=== PATIENT | male | born 1975 | race Caucasian/White ===

== ENCOUNTER 2018-09-19 14:49 | Observation (INO) ==
--- NOTE | 2018-09-19 14:53 | Emergency Department Note ---
ED Disposition Clinical Impression: Chest pain Qualifiers: Chest pain type: precordial pain Qualified Code(s): R07.2 - Precordial pain Hypertension Qualifiers: Hypertension type: essential hypertension Qualified Code(s): I10 - Essential (primary) hypertension Disposition: Still a Patient Condition on Discharge: Good - Critical Care Critical Care Time: No Attestation: On , the high probability of a clinically significant, sudden or life threatening deterioration of the following system(s) required my full and direct attention, intervention and personal management. The time I documented below is in addition to time spent performing reported procedures but includes the following listed in this critical care notation. Medical Decision Making - Nicolas Inquiry Pt receiving controlled substance: No Nicolas was queried for this patient: No Vital Signs: 09/19/18 14:49 09/19/18 15:39 09/19/18 16:00 Temperature 99.4 F Temperature Source Oral Pulse Rate Pulse Rate [Left Radial] 92 H 78 85 Respiratory Rate 18 14 16 Blood Pressure Blood Pressure [Right Arm] 195/120 H 181/103 H 168/105 H Blood Pressure Mean [Right Arm] 145 129 126 Blood Pressure Source Blood Pressure Source [Right Arm] Automatic Cuff Automatic Cuff Automatic Cuff Blood Pressure Position Blood Pressure Position [Right Arm] Supine Sitting Sitting 02 Sat by Pulse Oximetry 96 96 97 Oxygen Delivery Method Room Air Room Air Room Air 09/19/18 17:00 09/19/18 17:10 Temperature 99.4 F Temperature Source Pulse Rate 87 Pulse Rate [Left Radial] 69 Respiratory Rate 16 Blood Pressure 141/93 H Blood Pressure [Right Arm] 141/93 H Blood Pressure Mean [Right Arm] 109 Blood Pressure Source Automatic Cuff Blood Pressure Source [Right Arm] Automatic Cuff Blood Pressure Position Sitting Blood Pressure Position [Right Arm] Sitting 02 Sat by Pulse Oximetry 96 Oxygen Delivery Method Room Air Room Air - Lab Data Lab Results 09/19/18 15:03: WBC 9.6, RBC 5.00, Hgb 16.1, Hct 49.9, MCV 99.7 H, MCH 32.1 H, MCHC 32.2, RDW 13.6, Plt Count 446 H, MPV 6.5 L, Neut % (Auto) 50.4, Lymph % (Auto) 39.7, [place] % (Auto) 6.7, Eos % (Auto) 2.4, Baso % (Auto) 0.8, Neut # (Auto) 4.9, Lymph # (Auto) 3.8, [place] # (Auto) 0.6, Eos # (Auto) 0.2, Baso # (Auto) 0.1 09/19/18 15:03: Sodium 140, Potassium 3.6, Chloride 101, Carbon Dioxide 32, Anion Gap 10.6, BUN 10, Creatinine 0.93, Estimated Creat Clear 142, Estimated GFR 89, Est GFR ( Amer) 108, Glucose 101, Calcium 9.6, Troponin I < 0.02 09/19/18 15:03: PT 9.2 L, INR 0.89 L 09/19/18 16:10: Troponin I < 0.02 Result diagrams: 09/19/18 15:03 09/19/18 15:03 Orders (Tests/Meds): ED MEDICATIONS Generic Name Dose Route Start Last Admin Trade Name Freq PRN Reason Stop Dose Admin Acetaminophen 650 mg 09/19/18 18:31 09/19/18 18:43 Acetaminophen 325mg Tab PO 10/19/18 18:30 650 mg Q6HP PRN Administration FOR HEADACHE AND BACK PAIN Enoxaparin Sodium 100 mg 09/20/18 04:00 Lovenox 100mg/Ml Syringe SQ 10/19/18 15:59 Q12H RAISSA Mirtazapine 15 mg 09/19/18 17:30 Remeron 15mg Tablet PO 10/19/18 17:29 QHS RAISSA Nitrofurantoin Macrocrystals 100 mg 09/19/18 21:00 Macrodantin 100mg Capsule PO 10/03/18 20:59 BID RAISSA Non-Formulary Medication 1 cap 09/20/18 09:00 Amlodipine Besylate/Benazepril [Lotrel 10-40 Mg Capsule] PO 10/20/18 08:59 DAILY RAISSA Non-Formulary Medication 40 mg 09/20/18 09:00 Rosuvastatin Calcium [Crestor] PO 10/20/18 08:59 DAILY RAISSA Discontinued Medications Generic Name Dose Route Start Last Admin Trade Name Freq PRN Reason Stop Dose Admin Aspirin 324 mg 09/19/18 15:58 09/19/18 16:02 Aspirin 81mg Chewable Tablet PO 09/19/18 15:59 324 mg ONCE ONE Administration Enoxaparin Sodium 100 mg 09/19/18 16:00 09/19/18 17:56 Lovenox 100mg/Ml Syringe SQ 10/19/18 15:59 100 mg Q12H RAISSA Administration ORDERS Category Date Time Status Consult to Physician [CONS] Routine Cons 09/19/18 17:30 Ordered Troponin I Q3H Lab 09/19/18 22:00 Ordered - Radiology Data #1 Image(s): Chest Image Reviewed: Yes I reviewed the patient's radiology image Preliminary Findings: Normal/NAD - CT Data CT Scan: Head Time Received: 16:[address] Reviewed: Yes: I have viewed the radiologist's interpretation Findings Narrative: IMPRESSION: 1. No acute intracranial findings. 2. Small area of encephalomalacia involving the medial left parieto-occipital junction Dictated By: Aleksander Ramon MD Signed By: <Electronically signed by Aleksander Ramon MD in OV> 09/19/18 1540 - ECG Data Tracing #1 EKG interpreted by Bahman Johnson MD: Rhythm: sinus Rate: 93 Elliott: normal Ectopy: none Conduction: normal ST Segment Changes: none T Wave Changes: none Q Waves: none No evidence of acute ischemia or injury Baseline artifact and wander present, but I consider the EKG adequate for accurate interpretation. Normal electrocardiogram - Physician Consults Physician Consulted: Pallavi Time: 15:57 Reason -: Admission Comment/Response: Agrees to admit the patient to the hospital. We discussed the patient's clinical information, including history, exam, laboratory and radiology results and ED course. Per hospital procedure, I will write temporary bridge inpatient orders on the patient. Specific orders requested by the admitting physician: Hold Coumadin. Start Lovenox. Aspirin. Cardiology consult. Serial cardiac enzymes. Additional Consult: Nighat Time: 16:04 Reason -: Cardiology Eval/Care Comment/Response: Will consult. No orders given. Medical Decision Narrative: Discussed admission with patient. He states that he has a court appearance tomorrow morning. He says if he does not show up they will arrest him and he will have to spend 30 days in retirement. He does not want that to happen. He is trying to get a hold of the County to see if it is okay for him to be admitted. At this time he is uncertain if he will agree to admission. 4:30 PM: Patient states that he is agreeable to being admitted. General Adult HPI - General Stated complaint: chest pain Time Seen by Provider: 09/19/18 14:52 - History of Present Illness HPI narrative: Sent from primary care provider's office due to elevated blood pressure, chest pain. Patient states that he was seeing his primary care provider today for management of his medications. He does not feel like his blood pressure medication has been controlling his blood pressure. He says that his blood pressure medications were changed a couple of months ago. He was on lisinopril, Norvasc, and metoprolol. He was changed to a benazepril and amlodipine combination. His blood pressure has been running from 170-213 systolic and in the low 100s diastolic. He says for the past 2 weeks he has had severe headac hes and also intermittent chest pain that lasts a couple of hours. Currently has some very mild chest pain in his left anterior chest. No shortness of breath, nausea, diaphoresis. States prior history of strokes this spring. Treated at [facility]. Currently on warfarin. States that he has some slight residual right-sided weakness from his strokes. Able to ambulate and use his right arm without problems. States he is compliant with his Coumadin, last took it this morning. However, states that they have trouble controlling his INR. - Related Data Home Medications Medication Instructions Recorded Confirmed amlodipine 10 mg-benazepril 40 mg 1 cap PO DAILY 06/30/18 09/19/18 capsule mirtazapine 15 mg tablet 15 mg PO QHS tab 06/30/18 09/19/18 nitrofurantoin macrocrystal 100 mg 100 mg PO BID cap 06/30/18 09/19/18 capsule rosuvastatin 40 mg tablet 40 mg PO DAILY 06/30/18 09/19/18 warfarin 5 mg tablet 5 mg PO DAILY 06/30/18 09/19/18 Allergies Allergy/AdvReac Type Severity Reaction Status Date / Time codeine [CODEINE] Allergy Unknown SEVERE Verified 09/19/18 14:32 HEADACHE Penicillins [PENICILLINS] Allergy Unknown SWELLING Verified 09/19/18 14:32 [facility] History I have reviewed the patient's past medical history: Yes Medical History: Reports:: Hyperlipidemia, Hypertension, Transient Ischemic Sebastian cks (TIA) Amputation: No Fractures: No Comment: kidney stones removed - Social History Smoking Status: Former smoker Tobacco Type: cigarettes #Yrs smoked (if former smoker): 2 Alcohol Intake: never Substance Use Type: denies use Occupational Status: unemployed Housing: house Household Members: family ROS Obtained: Yes All systems reviewed & no additional complaints - Constitutional Constitutional: Denies fever(s) - Eyes Eyes: Denies change in vision - Cardiovascular Cardiovascular: Reports chest pain, Denies diaphoresis - Respiratory Respiratory: No dyspnea - Gastrointestinal Gastrointestingal: Denies: abdominal pain, nausea, vomiting - Neurologic Neurologic: Reports headache(s), Denies numbness, Denies weakness Physical Exam - General General appearance: alert, in no apparent distress Comment: Blood pressure 170/107 - Head Head exam: atraumatic, normocephalic, normal inspection - Eye Eye exam: Present: normal appearance, PERRL, EOMI - ENT ENT exam: Present: mucous membranes moist - Neck Neck exam: Present: normal inspection, full ROM, trachea midline. Absent: meningismus - Chest Chest inspection: Present: normal inspection, symmetric chest wall rise - Respiratory Respiratory exam: Present: normal lung sounds bilaterally. Absent: respiratory distress - Cardiovascular Cardiovascular exam: Present: regular rate, normal rhythm. Absent: JVD - Abdominal Exam Abdominal exam: Present: soft, normal bowel sounds. Absent: distention, tenderness, guarding - Extremities Exam Extremities exam: Present: normal inspection - Neurological Exam Neurological exam: Present: alert, oriented X3, CN II-XII intact. Absent: motor sensory deficit - Psychiatric Psychiatric exam: Present: normal affect, normal mood - Skin Skin exam: Present: warm, dry, intact, normal color
[2018-09-19 15:13] LABS: Basophils # 0.1 K/mm3 (0-0.2); Basophils % 0.8 % (0.1-2.0); Eosinophils # 0.2 K/mm3 (0.0-0.4); Eosinophils % 2.4 % (0.1-12.0); Hematocrit 49.9 % (42.0-52.0); Hemoglobin 16.1 g/dL (14.1-18.0); Lymphocytes # 3.8 K/mm3 (0.7-4.5); Lymphocytes % 39.7 % (10-50); Mean Corpuscular HGB Conc 32.2 g/dL (31.8-35.4); Mean Corpuscular Hemoglobin 32.1 pg (27.0-31.2); Mean Corpuscular Volume 99.7 fl (80-94); Mean Platelet Volume 6.5 fl (7.4-10.4); Monocytes # 0.6 K/mm3 (0.1-1.0); Monocytes % 6.7 % (1.7-9.3); Neutrophils # 4.9 K/mm3 (1.8-7.8); Neutrophils % 50.4 % (37.0-80.0); Platelet Count 446 K/mm3 (142-424); Red Cell Distribution Width 13.6 % (11.5-17.5); White Blood Count 9.6 K/mm3 (4.8-10.8)
[2018-09-19 15:21] LABS: INR 0.89 (0.9-1.1); Prothrombin Time 9.2 seconds (9.4-11.8)
[2018-09-19 15:29] LABS: Anion Gap 10.6 mEq/L (5-15); Blood Urea Nitrogen 10 mg/dL (7-18); Calcium 9.6 mg/dL (8.5-10.1); Carbon Dioxide 32 mmol/L (21.0-32.0); Chloride 101 mmol/L (98-107); Glucose 101 mg/dL (74-106); Potassium 3.6 mmoL/L (3.5-5.1); Sodium 140 mmol/L (136-145)
--- NOTE | 2018-09-19 20:29 | History & Physical Report ---
*Admission Date: 09/19/18 *Chief complaint: chest pain *History of present illness: pt with ongoing chest pain and was seen by pcp and sent to ed and was eval -t from primary care provider's office due to elevated blood pressure, chest pain. Patient states that he was seeing his primary care provider today for management of his medications. He does not feel like his blood pressure medication has been controlling his blood pressure. He says that his blood pressure medications were changed a couple of months ago. He was on lisinopril, Norvasc, and metoprolol. He was changed to a benazepril and amlodipine combination. His blood pressure has been running from 170-213 systolic and in the low 100s ely stolic. He says for the past 2 weeks he has had severe headaches and also intermittent chest pain that lasts a couple of hours. Currently has some very mild chest pain in his left anterior chest. No shortness of breath, nausea, diaphoresis. States prior history of strokes this spring. Treated at [facility]. Currently on warfarin. States that he has some slight residual right-sided weakness from his strokes. Able to ambulate and use his right arm without problems. States he is compliant with his Coumadin, last took it this morning. However, states that they have trouble controlling his INR. [facility] History I have reviewed the patient's past medical history: Yes Medical History: Reports:: Hyperlipidemia, Hypertension, Transient Ischemic Attacks (TIA) Denies:: Cancer, Diabetes Mellitus Type 1, Diabetes Mellitus Type 2, Internal Pacemaker, MRSA Other Surgeries: No: Pacemaker Amputation: No Fractures: No - *Social History Educational Level: Completed High School Smoking Status: Former smoker Tobacco Type: cigarettes #Yrs smoked (if former smoker): 2 Alcohol Intake: never Substance Use Type: denies use Occupational Status: unemployed Housing: house Household Members: family - Psychiatric History Expresses thoughts of harming self/others: None Suicide Plan Description: No Plan Review of Systems - Review of Systems Review of systems:: pertinent systems reviewed and negative unless documented below - Constitutional Denies fever(s) - Eyes Denies change in vision - ENT Denies sore throat - *Cardiovascular Reports chest pain - *Respiratory Denies cough - *Gastrointestinal Denies abdominal pain - *Genitourinary Denies blood in urine - *Musculoskeletal Denies joint pain - Integumentary/Breasts Denies rash - *Neurologic Reports headache(s), Denies numbness, Denies weakness - Psychiatric Denies anxiety Meds Home Medications Medication Instructions Recorded Confirmed Type amlodipine 10 mg-benazepril 40 mg 1 cap PO DAILY 06/30/18 09/19/18 History capsule mirtazapine 15 mg tablet 15 mg PO QHS tab 06/30/18 09/19/18 History nitrofurantoin macrocrystal 100 mg 100 mg PO BID cap 06/30/18 09/19/18 History capsule rosuvastatin 40 mg tablet 40 mg PO DAILY 06/30/18 09/19/18 History warfarin 5 mg tablet 5 mg PO DAILY 06/30/18 09/19/18 History Allergies Allergy/AdvReac Type Severity Reaction Status Date / Time codeine [CODEINE] Allergy Unknown SEVERE Verified 09/19/18 14:32 HEADACHE Penicillins [PENICILLINS] Allergy Unknown SWELLING Verified 09/19/18 14:32 Exam Vital signs and Labs for Last 24 Hours: Temp Pulse Resp BP Pulse Ox 98.2 F 61 16 164/104 H 99 09/19/18 17:30 09/19/18 17:30 09/19/18 17:30 09/19/18 17:30 09/19/18 17:30 Laboratory Results - last 24 hr 09/19/18 15:03: WBC 9.6, RBC 5.00, Hgb 16.1, Hct 49.9, MCV 99.7 H, MCH 32.1 H, MCHC 32.2, RDW 13.6, Plt Count 446 H, MPV 6.5 L, Neut % (Auto) 50.4, Lymph % (Auto) 39.7, [place] % (Auto) 6.7, Eos % (Auto) 2.4, Baso % (Auto) 0.8, Neut # (Auto) 4.9, Lymph # (Auto) 3.8, [place] # (Auto) 0.6, Eos # (Auto) 0.2, Baso # (Auto) 0.1 09/19/18 15:03: Sodium 140, Potassium 3.6, Chloride 101, Carbon Dioxide 32, Anion Gap 10.6, BUN 10, Creatinine 0.93, Estimated Creat Clear 142, Estimated GFR 89, Est GFR ( Amer) 108, Glucose 101, Calcium 9.6, Troponin I < 0.02 09/19/18 15:03: PT 9.2 L, INR 0.89 L 09/19/18 16:10: Troponin I < 0.02 09/19/18 18:05: POC Glucose 96 09/19/18 19:00: Troponin I < 0.02 I & O for Last 24 hours: Intake & Output 09/17/18 09/18/18 09/19/18 09/20/18 11:59 11:59 11:59 11:59 Intake Total 240 / 240 Balance 240 / 240 Weight 209 lb 7 oz - Constitutional no acute distress - *Routine HEENT Exam Head: Present: normocephalic Eye: Present: EOMI, PERRL ENT: Present: mucous membranes dry - *Routine Neck Exam Present: supple - *Routine Respiratory Exam Present: CTA bilaterally - *Routine Cardiovascular Exam Present: RRR. Absent: murmur - *Routine Abdominal Exam Present: soft - *Routine Extremities Exam Absent: calf tenderness - *Routine Skin Exam Present: intact - *Routine Neurological Exam Present: alert, CN II-XII intact - Routine Psychiatric Exam Present: normal affect Assessment and Plan (1) Chest pain Current visit: Yes Status: Acute Qualifiers: Chest pain type: precordial pain Qualified Code(s): R07.2 - Precordial pain Category: Medical Code(s): R07.9 - Chest pain, unspecified (2) Hypertension Current visit: Yes Status: Acute Qualifiers: Hypertension type: essential hypertension Qualified Code(s): I10 - Essential (primary) hypertension Category: Medical Code(s): I10 - Essential (primary) hypertension (3) Tobacco use Current visit: Yes Status: Acute Category: Medical Code(s): Z72.0 - Tobacco use
--- NOTE | 2018-09-20 07:55 | Pharmacy Consult Notes ---
[facility] Pharmacy VTE Monitoring - Patient Demographics Admission date: 09/20/18 Report Date: 09/20/18 Time: 07:55 Allergies/Adverse Reactions: Patient Allergies codeine [CODEINE] Allergy (Unknown, Verified 09/19/18 14:32) SEVERE HEADACHE Penicillins [PENICILLINS] Allergy (Unknown, Verified 09/19/18 14:32) SWELLING Height: 1.85 m Weight: 94.999 kg Patient Problems: Current Active Problems Chest pain (Acute) Hypertension (Acute) Tobacco use (Acute) - VTE Risk Labs: VTE Related Lab Results Hgb 16.1 g/dL (14.1-18.0) 09/19/18 15:03 Hct 49.9 % (42.0-52.0) 09/19/18 15:03 Plt Count 446 K/mm3 (142-424) H 09/19/18 15:03 PT 9.2 seconds (9.4-11.8) L 09/19/18 15:03 INR 0.89 (0.9-1.1) L 09/19/18 15:03 BUN 10 mg/dL (7-18) 09/19/18 15:03 Creatinine 0.93 mg/dL (0.70-1.30) 09/19/18 15:03 Estimated Creat Clear 142 mL/min (50-200) 09/19/18 15:03 Was VTE Risk Assessment Performed: Yes VTE Score: 1 VTE Risk Level: Very Low Risk Clinical Trial Participant: No - Prophylaxis VTE Prophylaxis Ordered?: Yes Types of VTE Prophylaxis: TEDS Knee High
--- NOTE | 2018-09-20 08:28 | Consult Report ---
History of Present Illness Consult date: 09/20/18 Requesting physician: Cas Olivo Consult reason: chest pain, hypertension Chief complaint: Chest pain, Hypertension Additional Medical History:: 1. Hypertension 2. History of CVAs starting in 2014 with right-sided residual deficit A. Chronic Coumadin therapy 3. History of tobacco use discontinued 2014 4. Strong family history in both parents with coronary disease in their 50s 5. "Borderline" diabetic 6. Hyperlipidemia 7. History of recent back surgery, 2018 8. History of recurrent nephrolithiasis and hematuria. Patient follows with nephrology on a routine basis. A. History of surgical removal of kidney stones History of present illness: pt with ongoing chest pain and was seen by pcp and sent to ed and was eval -t from primary care provider's office due to elevated blood pressure, chest pain. Patient states that he was seeing his primary care provider today for management of his medications. He does not feel like his blood pressure medication has been controlling his blood pressure. He says that his blood pressure medications were changed a couple of months ago. He was on lisinopril, Norvasc, and metoprolol. He was changed to a benazepril and amlodipine combination. His blood pressure has been running from 170-213 systolic and in the low 100s diastolic. He says for the past 2 weeks he has had severe headaches and also intermittent chest pain that lasts a couple of hours. Currently has some very mild chest pain in his left anterior chest. No shortness of breath, nausea, diaphoresis. States prior history of strokes this spring. Treated at [facility]. Currently on warfarin. States that he has some slight residual right-sided weakness from his strokes. Able to ambulate and use his right arm without problems. States he is compliant with his Coumadin, last took it this morning. However, states that they have trouble controlling his INR. The above per Dr. Olivo Patient has significant cardiac risk factors including hypertension, hyperlipidemia, borderline diabetic and ex-smoker with recent history of CVA. Patient has had some intermittent chest pain that is exacerbated by deep breathing. Patient's blood pressure has been improved overnight with some continued chest discomfort this a.m. Troponins are normal x3. EKG is sinus with no acute ST segment changes. Cardiology consulted for evaluation recommendations. [facility] History Medical History: Reports:: Hyperlipidemia, Hypertension, Transient Ischemic Attacks (TIA) Denies:: Cancer, Diabetes Mellitus Type 1, Diabetes Mellitus Type 2, Internal Pacemaker, MRSA Other Surgeries: No: Pacemaker Amputation: No Fractures: No - *Social History Educational Level: Completed High School Smoking Status: Former smoker Tobacco Type: cigarettes #Yrs smoked (if former smoker): 2 Alcohol Intake: never Substance Use Type: denies use Occupational Status: unemployed Housing: house Household Members: family - Psychiatric History Expresses thoughts of harming self/others: None Suicide Plan Description: No Plan Meds Home Medications Medication Instructions Recorded Confirmed Type amlodipine 10 mg-benazepril 40 mg 1 cap PO DAILY 06/30/18 09/19/18 History capsule mirtazapine 15 mg tablet 15 mg PO QHS tab 06/30/18 09/19/18 History rosuvastatin 40 mg tablet 40 mg PO DAILY 06/30/18 09/19/18 History warfarin 5 mg tablet 5 mg PO DAILY 06/30/18 09/19/18 History Metoprolol Succinate 50 mg PO DAILY 09/20/18 09/20/18 History Allergies Allergy/AdvReac Type Severity Reaction Status Date / Time codeine [CODEINE] Allergy Unknown SEVERE Verified 09/19/18 14:32 HEADACHE Penicillins [PENICILLINS] Allergy Unknown SWELLING Verified 09/19/18 14:32 Review of Systems - *Cardiovascular Reports chest pain - *Respiratory Reports shortness of breath with activity - *Gastrointestinal Denies abdominal pain - *Genitourinary Denies blood in urine - *Musculoskeletal Reports back pain - *Neurologic Reports headache(s), Denies numbness, Denies weakness Exam Vital signs and Labs for Last 24 Hours: Temp Pulse Resp BP Pulse Ox 97.8 F 67 16 133/74 96 09/20/18 04:00 09/20/18 04:00 09/20/18 04:00 09/20/18 04:00 09/20/18 04:00 Laboratory Results - last 24 hr 09/19/18 15:03: WBC 9.6, RBC 5.00, Hgb 16.1, Hct 49.9, MCV 99.7 H, MCH 32.1 H, MCHC 32.2, RDW 13.6, Plt Count 446 H, MPV 6.5 L, Neut % (Auto) 50.4, Lymph % (Auto) 39.7, [place] % (Auto) 6.7, Eos % (Auto) 2.4, Baso % (Auto) 0.8, Neut # (Auto) 4.9, Lymph # (Auto) 3.8, [place] # (Auto) 0.6, Eos # (Auto) 0.2, Baso # (Auto) 0.1 09/19/18 15:03: Sodium 140, Potassium 3.6, Chloride 101, Carbon Dioxide 32, Anion Gap 10.6, BUN 10, Creatinine 0.93, Estimated Creat Clear 142, Estimated GFR 89, Est GFR ( Amer) 108, Glucose 101, Calcium 9.6, Troponin I < 0.02 09/19/18 15:03: PT 9.2 L, INR 0.89 L 09/19/18 16:10: Troponin I < 0.02 09/19/18 18:05: POC Glucose 96 09/19/18 19:00: Troponin I < 0.02 I & O for Last 24 hours: Intake & Output 09/17/18 09/18/18 09/19/18 09/20/18 11:59 11:59 11:59 11:59 Intake Total 360 / 360 Output Total 800 / 800 Balance -440 / -440 Weight 209 lb 7 oz - *Routine Neck Exam Present: supple. Absent: JVD, carotid bruit - *Routine Respiratory Exam Present: CTA bilaterally. Absent: accessory muscle use, rales, rhonchi, wheezes - *Routine Cardiovascular Exam Present: RRR. Absent: murmur, gallop, rubs - *Routine Abdominal Exam Present: soft. Absent: tenderness, distended, guarding - *Routine Extremities Exam Absent: edema, calf tenderness - *Routine Neurological Exam Present: alert, oriented X3, moving all extremities Assessment and Plan (1) Chest pain Current visit: Yes Status: Acute Qualifiers: Chest pain type: precordial pain Qualified Code(s): R07.2 - Precordial pain Category: Medical Code(s): R07.9 - Chest pain, unspecified (2) Hypertension Current visit: Yes Status: Acute Qualifiers: Hypertension type: essential hypertension Qualified Code(s): I10 - Essential (primary) hypertension Category: Medical Code(s): I10 - Essential (primary) hypertension (3) Tobacco use Current visit: Yes Status: Acute Category: Medical Code(s): Z72.0 - Tobacco use (4) Hyperlipidemia Current visit: Yes Status: Acute Category: Medical Code(s): E78.5 - Hyperlipidemia, unspecified - Assessment and plan all Dx Assessment and Plan for all problems:: Patient with recurrent episodes of chest pain with significant cardiac risk factors (JON score of 2) would recommend proceeding with cardiac catheterization in light of patient's significant family history, previous strokes and hyperlipidemia with borderline diabetes. The procedure, risk and benefits were explained to the patient he agrees to proceed. We will perform the cardiac catheterization today.
--- NOTE | 2018-09-20 11:44 | Discharge Summary ---
General - General Admission date:: 09/19/18 Discharge date: 09/20/18 HPI HPI: pt with ongoing chest pain and was seen by pcp and sent to ed and was eval -t from primary care provider's office due to elevated blood pressure, chest pain. Patient states that he was seeing his primary care provider today for management of his medications. He does not feel like his blood pressure medication has been controlling his blood pressure. He says that his blood pressure medications were changed a couple of months ago. He was on lisinopril, Norvasc, and metoprolol. He was changed to a benazepril and amlodipine combination. His blood pressure has been running from 170-213 systolic and in the low 100s diastolic. He says for the past 2 weeks he has had severe headaches and also intermittent chest pain that lasts a couple of hours. Currently has some very mild chest pain in his left anterior chest. No shortness of breath, nausea, diaphoresis. States prior history of strokes this spring. [facility] Currently on warfarin. States that he has some slight residual right-sided weakness from his strokes. Able to ambulate and use his right arm without problems. States he is compliant with his Coumadin, last took it this morning. However, states that they have trouble controlling his INR. Hospital Course Hospital Course: pt did well and had back pain - was seen by card -Hypertension 2. History of CVAs starting in 2014 with right-sided residual deficit A. Chronic Coumadin therapy 3. History of tobacco use discontinued 2014 4. Strong family history in both parents with coronary disease in their 50s 5. "Borderline" diabetic 6. Hyperlipidemia 7. History of recent back surgery, 2017 8. History of recurrent nephrolithiasis and hematuria. Patient follows with nephrology on a routine basis. A. History of surgical removal of kidney stones History of present illness: pt with ongoing chest pain and was seen by pcp and sent to ed and was eval -t from primary care provider's office due to elevated blood pressure, chest pain. Patient states that he was seeing his primary care provider today for management of his medications. He does not feel like his blood pressure medication has been controlling his blood pressure. He says that his blood pressure medications were changed a couple of months ago. He was on lisinopril, Norvasc, and metoprolol. He was changed to a benazepril and amlodipine combination. His blood pressure has been running from 170-213 systolic and in the low 100s diastolic. He says for the past 2 weeks he has had severe headaches and also intermittent chest pain that lasts a couple of hours. Currently has some very mild chest pain in his left anterior chest. No shortness of breath, nausea, diaphoresis. States prior history of strokes this spring. [facility] Currently on warfarin. States that he has some slight residual right-sided weakness from his strokes. Able to ambulate and use his right arm without problems. Patient has significant cardiac risk factors including hypertension, hyperlipidemia, borderline diabetic and ex-smoker with recent history of CVA. Patient has had some intermittent chest pain that is exacerbated by deep breathing. Patient's blood pressure has been improved overnight with some continued chest discomfort this a.m. Troponins are normal x3. EKG is sinus with no acute ST segment changes. Cardiology consulted for evaluation recommendatio tient with recurrent episodes of chest pain with significant cardiac risk factors (JON score of 2) would recommend proceeding with cardiac catheterization in light of patient's significant family history, previous strokes and hyperlipidemia with borderline diabetes. The procedure, risk and benefits were explained to the patient he agrees to proceed. We will perform the cardiac catheterization today. . The left main artery normal 2. The left anterior descending artery normal 3. The circumflex artery dominant normal 4. The right coronary artery normal 5. The GAINES ventriculogram reveals normal 65% 6. The left ventricular end-diastolic pressure 10 mmHg IMPRESSION: 1. Normal coronary arteries 2. Normal ejection fraction 3. Normal left ventricular end-diastolic pressure will see pt as op Objective Vital signs: Temp Pulse Resp BP Pulse Ox 97.7 F 95 H 16 119/72 94 L 09/20/18 08:00 09/20/18 11:18 09/20/18 11:18 09/20/18 11:18 09/20/18 11:18 no acute distress - *Routine HEENT Exam Head: Present: normocephalic Eye: Present: EOMI, PERRL ENT: Present: mucous membranes dry - *Routine Neck Exam Present: supple - *Routine Respiratory Exam Present: CTA bilaterally - *Routine Cardiovascular Exam Present: RRR, murmur - *Routine Abdominal Exam Present: soft - *Routine Extremities Exam Present: full ROM - *Routine Skin Exam Present: intact - *Routine Neurological Exam Present: alert, CN II-XII intact - Routine Psychiatric Exam Present: normal affect Results Labs on day of discharge: Labs from last 24 hours 09/19/18 09/19/18 09/19/18 19:00 18:05 16:10 WBC RBC Hgb Hct MCV MCH MCHC RDW Plt Count MPV Neut % (Auto) Lymph % (Auto) [place] % (Auto) Eos % (Auto) Baso % (Auto) Neut # (Auto) Lymph # (Auto) [place] # (Auto) Eos # (Auto) Baso # (Auto) PT INR Sodium Potassium Chloride Carbon Dioxide Anion Gap BUN Creatinine Estimated Creat Clear Estimated GFR Est GFR ( Amer) Glucose POC Glucose 96 Calcium Troponin I < 0.02 < 0.02 09/19/18 09/19/18 09/19/18 15:03 15:03 15:03 WBC 9.6 RBC 5.00 Hgb 16.1 Hct 49.9 MCV 99.7 H MCH 32.1 H MCHC 32.2 RDW 13.6 Plt Count 446 H MPV 6.5 L Neut % (Auto) 50.4 Lymph % (Auto) 39.7 [place] % (Auto) 6.7 Eos % (Auto) 2.4 Baso % (Auto) 0.8 Neut # (Auto) 4.9 Lymph # (Auto) 3.8 [place] # (Auto) 0.6 Eos # (Auto) 0.2 Baso # (Auto) 0.1 PT 9.2 L INR 0.89 L Sodium 140 Potassium 3.6 Chloride 101 Carbon Dioxide 32 Anion Gap 10.6 BUN 10 Creatinine 0.93 Estimated Creat Clear 142 Estimated GFR 89 Est GFR ( Amer) 108 Glucose 101 POC Glucose Calcium 9.6 Troponin I < 0.02 DS: Diagnosis - Discharge Diagnosis (1) Chest pain Status: Acute (2) Hypertension Status: Acute (3) Tobacco use Status: Acute (4) Hyperlipidemia Status: Acute Discharge Plan - Patient Discharge Instructions ACTIVITY: Continue current activity DIET: continue same diet Patient Instructions: DI for Cardiac Catheterization, DI for Surgical Site Infection, DI for Chest Pain - Follow up Plan Disposition: Home, Self-Senior Care Medications: Home Medications Medication Instructions Recorded Confirmed Type amlodipine 10 mg-benazepril 40 mg 1 cap PO DAILY 06/30/18 09/19/18 History capsule rosuvastatin 40 mg tablet 40 mg PO DAILY 06/30/18 09/19/18 History warfarin 5 mg tablet 5 mg PO DAILY 06/30/18 09/19/18 History Gabapentin [Neurontin 600mg 600 mg PO TID 09/20/18 09/20/18 History tablet] Metoprolol Succinate 50 mg PO DAILY 09/20/18 09/20/18 History Prescriptions/Medication Reconciliation: Continue amlodipine 10 mg-benazepril 40 mg capsule 1 cap PO DAILY rosuvastatin 40 mg tablet 40 mg PO DAILY warfarin 5 mg tablet 5 mg PO DAILY Metoprolol Succinate 50 mg PO DAILY Gabapentin [Neurontin 600mg tablet] 600 mg PO TID
--- NOTE | 2018-09-21 15:06 | Cardiology Report ---
PROCEDURE: 2-D M-mode and color Doppler study INDICATIONS FOR THE TEST: Chest pain+ COPD Heart Murmur Tobacco Smoking Palpitations Fatigue Syncope Edema Hypertension+Diabetes Mellitus Rheumatic Fever SOB+[place]+Obesity Hyperlipidemia+ Family History HD+ Additional History CVA PATIENT INFORMATION HEIGHT: 73 WEIGHT: 209 GENDER: Male B/P: 164/104 2-D/M-MODE INTERPRETATION: 2-D MEASUREMENTS OBSERVED VALUES IN CMS Right Ventricular Dimension (RVDd) 2.5 Interventricular Septum (Thickness)(IVsd) 0.8 Left Ventricular Internal Dimensions(LVIDd) 4.0 Left Ventricular Posterior Wall (Thickness)(LVPWd) 0.9 Aortic Root 3.5 Aortic Cusp Separation 2.6 Left Atrial Dimensions (LAD) 3.8 2D 1. Left atrium is qualitatively mildly enlarged, left ventricle is normal size, mild concentric left ventricular hypertrophy, visually estimated ejection fraction of 55% with no regional wall motion abnormality. 2. The right atrium and right ventricle are normal size and contractility. 3. The aortic valve is minimally thickened and fibrosed. 4. The mitral and tricuspid valvular grossly normal. 5. The pulmonic valve is poorly visualized. 6. No significant pericardial effusion noted. DOPPLER INTERROGATION: Doppler interrogation of the aortic, mitral and tricuspid valvular presence of mild mitral and tricuspid regurgitation, tricuspid regurgitation jet velocity is inadequate for calculation of the right ventricular systolic pressure, grade 1 diastolic dysfunction seen without tissue Doppler evidence of raised left atrial pressure. CONCLUSION: 1. Mildly enlarged left atrium, normal left ventricular size, mild concentric left ventricular hypertrophy, visually estimated ejection fraction 55% with no regional wall motion abnormality, grade 1 diastolic dysfunction seen without tissue Doppler evidence of raised left atrial pressure. 2. Mild mitral and tricuspid regurgitation 3. No significant pericardial effusion noted.
== END 2018-09-20 15:15 | disposition home or self-care (01) ==
LOC: 2ND 14:49 → ER 14:49 → 2ND 17:13
PROVIDERS: ADMIT Emergency Medicine; ATTEND Emergency Medicine

== ENCOUNTER → 2018-09-25 10:23 | Outpatient (POV) | payer SELFPAY ==
[2018-09-25 10:36] VITALS: BP 192/110; PULSE 91; RESP 18
--- NOTE | 2018-09-25 10:59 | HMH.PMCON ---
Assessment and Plan (1) Back pain Current visit: Yes Status: Chronic Qualifiers: Back pain location: low back pain Chronicity: chronic Back pain laterality: midline Sciatica presence: with sciatica Sciatica laterality: sciatica of right side Qualified Code(s): M54.41 - Lumbago with sciatica, right side; G89.29 - Other chronic pain Category: Medical Code(s): M54.9 - Dorsalgia, unspecified (2) Postlaminectomy syndrome Current visit: Yes Status: Chronic Category: Medical Code(s): M96.1 - Postlaminectomy syndrome, not elsewhere classified - Assessment and plan all Dx Assessment and Plan for all problems:: We will schedule lumbar MRI to determine pathology for the patient. Patient and I discussed that we will not be prescribing any narcotic medication. Given the patient's ORT score he is not a candidate for this. Patient states he has a lot of attics in his family and he is not interested in this. I will follow-up with him after his lumbar MRI. This note was dictated using voice recognition software and may contain errors or omissions HPI - Data of Consult Consult date: 09/25/18 Requesting Physician: Elba Griffin APRN Primary Care Provider: Radha Marmolejo APRN - Consult Narrative Reason for consult: Back pain History of present illness: Mr. Ward is a 43 year old male who presents today for consultation in regards to his low back pain. Patient rates his pain a 5 out of 10. Of note patient blood pressure today is high we encouraged him to go the ER. Patient do not want to go to the ER. Patient had recent heart cath. I did encourage him to call his primary care physician. Patient states his pain is low back radiating into his right. He had a [place] [address] Suárez in which his left leg was on one that was bothering him however since then his right leg has been bothering him. Patient states he has numbness and tingling on all of his toes on the right side. Patient has tried and failed stretching along with medications. Patient is currently on Coumadin. Patient and I discussed that we would not be doing any narcotic medication. And he understands. Patient does not have a recent MRI. CC: Elba Griffin APRN [facility] History I have reviewed the patient's past medical history: Yes Medical History: Reports:: Hyperlipidemia, Hypertension, Transient Ischemic Attacks (TIA) Denies:: Cancer, Diabetes Mellitus Type 1, Diabetes Mellitus Type 2, Internal Pacemaker, MRSA Other Surgeries: No: Pacemaker Amputation: No Fractures: No - *Social History Smoking Status: Never smoker Tobacco Type: cigarettes #Yrs smoked (if former smoker): 2 Alcohol Intake: never Substance Use Type: denies use Occupational Status: unemployed Housing: house Household Members: family - Psychiatric History Expresses thoughts of harming self/others: None Suicide Plan Description: No Plan Review of Systems - Review of Systems ROS General: no recent weight change, no fever, no sleep disturbances Respiratory: no cough, no shortness of air, no recurring pulmonary infections Cardiovascular/Peripheral Vascular: No chest pain, No palpitations, no edema, no shortness of breath. Gastrointestinal: no incontinence, normal bowel movements reported Genitourinary: no incontinence Musculoskeletal: Back pain, leg pain Psychiatric: normal mood/ affect Neurological: [denies weakness in extremities], [denies balance issues] Meds Home Medications Medication Instructions Recorded Confirmed Type amlodipine 10 mg-benazepril 40 mg 1 cap PO DAILY 06/30/18 09/19/18 History capsule rosuvastatin 40 mg tablet 40 mg PO DAILY 06/30/18 09/19/18 History warfarin 5 mg tablet 5 mg PO DAILY 06/30/18 09/19/18 History Gabapentin [Neurontin 600mg 600 mg PO TID 09/20/18 09/20/18 History tablet] Metoprolol Succinate 50 mg PO DAILY 09/20/18 09/20/18 History Allergies Allergy/AdvReac Type Sever
--- NOTE | 2018-09-25 11:02 | P.CONS_ITS ---
Assessment and Plan (1) Back pain Current visit: Yes Status: Chronic Qualifiers: Back pain location: low back pain Chronicity: chronic Back pain laterality: midline Sciatica presence: with sciatica Sciatica laterality: sciatica of right side Qualified Code(s): M54.41 - Lumbago with sciatica, right side; G89.29 - Other chronic pain Category: Medical Code(s): M54.9 - Dorsalgia, unspecified (2) Postlaminectomy syndrome Current visit: Yes Status: Chronic Category: Medical Code(s): M96.1 - Postlaminectomy syndrome, not elsewhere classified - Assessment and plan all Dx Assessment and Plan for all problems:: We will schedule lumbar MRI to determine pathology for the patient. Patient and I discussed that we will not be prescribing any narcotic medication. Given the patient's ORT score he is not a candidate for this. Patient states he has a lot of attics in his family and he is not interested in this. I will follow-up with him after his lumbar MRI. This note was dictated using voice recognition software and may contain errors or omissions HPI - Data of Consult Consult date: 09/25/18 Requesting Physician: Elba Griffin APRN Primary Care Provider: Radha Marmolejo APRN - Consult Narrative Reason for consult: Back pain History of present illness: Mr. Ward is a 43 year old male who presents today for consultation in regards to his low back pain. Patient rates his pain a 5 out of 10. Of note patient blood pressure today is high we encouraged him to go the ER. Patient do not want to go to the ER. Patient had recent heart cath. I did encourage him to call his primary care physician. Patient states his pain is low back radiating into his right. He had a fusion in [address] Suárez in which his left leg was on one that was bothering him however since then his right leg has been bothering him. Patient states he has numbness and tingling on all of his toes on the right side. Patient has tried and failed stretching along with medications. Patient is currently on Coumadin. Patient and I discussed that we would not be doing any narcotic medication. And he understands. Patient does not have a recent MRI. CC: Elba Griffin APRN [facility] History I have reviewed the patient's past medical history: Yes Medical History: Reports:: Hyperlipidemia, Hypertension, Transient Ischemic Attacks (TIA) Denies:: Cancer, Diabetes Mellitus Type 1, Diabetes Mellitus Type 2, Internal Pacemaker, MRSA Other Surgeries: No: Pacemaker Amputation: No Fractures: No - *Social History Smoking Status: Never smoker Tobacco Type: cigarettes #Yrs smoked (if former smoker): 2 Alcohol Intake: never Substance Use Type: denies use Occupational Status: unemployed Housing: house Household Members: family - Psychiatric History Expresses thoughts of harming self/others: None Suicide Plan Description: No Plan Review of Systems - Review of Systems ROS General: no recent weight change, no fever, no sleep disturbances Respiratory: no cough, no shortness of air, no recurring pulmonary infections Cardiovascular/Peripheral Vascular: No chest pain, No palpitations, no edema, no shortness of breath. Gastrointestinal: no incontinence, normal bowel movements reported Genitourinary: no incontinence Musculoskeletal: Back pain, leg pain Psychiatric: normal mood/ affect Neurological: [denies weakness in extremities], [denies balance issues] Meds Home Medications
== END ==
PROVIDERS: PCP Nurse Practitioner Family; Visit Provider Clinical Nurse Specialist Family Health
DX: M54.41 Lumbago with sciatica, right side (principal); M96.1 Postlaminectomy syndrome, not elsewhere classified; Z79.01 Long term (current) use of anticoagulants; I10 Essential (primary) hypertension
CPT/HCPCS: 99202

== ENCOUNTER → 2020-08-14 10:25 | Outpatient (CLI) | payer MEDICAID, SELFPAY ==
--- NOTE | 2020-08-14 10:28 | CA_ITS ---
APPROVED REPORT Right Lower Extremity Venous Study for DVT. Street Light Mechanic: VERA GlynnT Indications Lower Extremity Pain: Right Lower Extremity Edema: Right Current Smoker Right lower ext swelling Past History DVT : Vein Imaging CFV (R): compressive, spontaneous, phasic, augmentation FEM (R): compressive, spontaneous, phasic, augmentation POP (R): compressive, spontaneous, phasic, augmentation PTV (R): Compressible GSV (R): Compressible Peroneals (R):Compressible GAS (R): Compressible Findings Study suggests no evidence of DVT of the right lower extremity. Study suggests no evidence of SVT of the right lower extremity. Conclusion Study suggests no evidence of DVT of the right lower extremity. Study suggests no evidence of SVT of the right lower extremity. Electronically signed by : Aleksander Ramon MD 08/14/2020 17:50:18
== END ==
PROVIDERS: PCP Nurse Practitioner Family; Visit Provider Internal Medicine Cardiovascular Disease
DX: R07.9 Chest pain, unspecified (principal); R06.00 Dyspnea, unspecified; R00.2 Palpitations; R55 Syncope and collapse; E78.5 Hyperlipidemia, unspecified; I10 Essential (primary) hypertension; Z72.0 Tobacco use; Z86.73 Personal history of transient ischemic attack (TIA), and cerebral infarction without residual deficits
CPT/HCPCS: 93270; 93971

== ENCOUNTER → 2020-08-20 10:22 | Outpatient (CLI) | payer MEDICAID, SELFPAY ==
--- NOTE | 2020-08-20 10:23 | CA_ITS ---
APPROVED REPORT EXAM: Comprehensive 2D, Doppler, and color-flow Echocardiogram Window Shade Estimator: Bertha Singleton RT(R) Ht: 6 ft 1 in Wt: 185lbs BSA: 2.08 BP: 151/84 mmHg Indications: edema, near syncope, CP, smoker, HTN, SOB, hyperlipidemia, ordered as a bubble study Echo Enhancing Agent Indication: Rule Out Septal Defect Agent(s) / Amount(s) Used: Agitated Saline 20 cc 2D Dimensions IVSd 0.90 cm M: 0.6-1.2 LVEF (Visual) 61.30 % PWd 1.10 cm M: 0.6 - 1.2 LVDd 4.30 cm M: 4.2 - 5.9 LVDs 2.90 cm M: 2.5 - 4.0 M-Mode Dimensions Ao Diam 3.20 cm (2.0-3.7) AV Cusp 1.90 cm (1.5-2.6) LV Diastology E/A Ratio 1.0 MED E' 6.63 (< 7 cm/sec) E'/MED E' Ratio 15.00 (>14) LAT E' 10.50 (<10 cm/sec) E/LAT E' Ratio 9.50 (>14) Mitral Valve MV E Max Bar. 99.70 (40-130 cm/s) MV A Velocity 99.70 (40-130 cm/s) E/A Ratio 1.00 Left Ventricle Left atrium is mildly enlarged, left ventricle is normal size, mild concentric left ventricular hypertrophy, visually estimated ejection fraction 55% with no regional wall motion abnormality, grade 1 diastolic dysfunction seen without tissue Doppler evidence of each left atrial pressure. Right Ventricle Right atrium and right ventricle are normal size and contractility. Atria Intra-atrial septum is intact, there is no flow across the interatrial septum, agitated saline contrast reveals 25 intracardiac shunt. Aortic Valve Aortic valve is grossly normal, there is no aortic stenosis or aortic insufficiency. Mitral Valve Mitral valve grossly normal, there is mild mitral regurgitation. Tricuspid Valve Tricuspid valve grossly normal, there is mild tricuspid regurgitation, tricuspid regurgitation (inadequate for calculation of the right ventricular systolic pressure. Pulmonic Valve Pulmonic valve is poorly visualized. Great Vessels Aortic root is normal size. Pericardium No significant pericardial effusion noted. Conclusion 1. Mildly low left atrium, normal left ventricular size, mild concentric left ventricular hypertrophy, visually estimated ejection fraction 55% with no regional wall motion abnormality, grade 1 diastolic dysfunction seen without tissue Doppler evidence of raise left atrial pressure. 2. Agitated saline contrast fails to identify intracardiac shunt. 3. Mild mitral and tricuspid regurgitation. 4. No significant pericardial effusion noted. Electronically signed by : Camilo Arteaga, 08/21/2020 14:04:53
== END ==
PROVIDERS: PCP Nurse Practitioner Family; Visit Provider Internal Medicine Cardiovascular Disease
DX: R00.2 Palpitations (principal); R07.9 Chest pain, unspecified; R06.00 Dyspnea, unspecified; R55 Syncope and collapse; I65.22 Occlusion and stenosis of left carotid artery; E78.5 Hyperlipidemia, unspecified; I10 Essential (primary) hypertension; Z72.0 Tobacco use; Z86.73 Personal history of transient ischemic attack (TIA), and cerebral infarction without residual deficits
CPT/HCPCS: 93306

== ENCOUNTER → 2020-08-22 09:03 | Outpatient (CLI) | payer MEDICAID, SELFPAY ==
--- NOTE | 2020-08-22 09:12 | CA_ITS ---
APPROVED REPORT College Service Officer: CATRACHITA Laterality: Bilateral Indications: LEFT CAROTID BRUIT Risk Factors Hypertension: Hyperlipidemia Smoking Doppler Spectral Velocity Analysis ECA (R) 98.80/22.40 cm/s ECA (L) 103.10/24.10 cm/s dICA (R) 126.20/56.80 cm/s dICA (L) 112.70/50.10 cm/s Percy (R) 84.50/41.90 cm/s Percy (L) 104.00/46.20 cm/s pICA (R) 73.80/25.10 cm/s pICA (L) 73.20/30.80 cm/s dCCA (R) 78.10/24.60 cm/s dCCA (L) 85.70/28.90 cm/s pCCA (R) 151.20/33.70 cm/s pCCA (L) 145.40/35.60 cm/s Vert (R) 63.60/17.20 cm/s Vert (L) 44.30/11.60 cm/s ICA/CCA 1.62 ICA/CCA 1.31 Findings Duplex evaluation demonstrates stenosis of the right proximal internal carotid artery <20% with PSV <140 cm/sec, EDV <100 cm/sec, and IC/CC Ratio <4.0. Duplex evaluation demonstrates stenosis of the left proximal internal carotid artery <20% with PSV <140 cm/sec, EDV <100 cm/sec, and IC/CC Ratio <4.0. Conclusion Duplex evaluation demonstrates stenosis of the right proximal internal carotid artery <20% with PSV <140 cm/sec, EDV <100 cm/sec, and IC/CC Ratio <4.0. Duplex evaluation demonstrates stenosis of the left proximal internal carotid artery <20% with PSV <140 cm/sec, EDV <100 cm/sec, and IC/CC Ratio <4.0. Electronically signed by : Aleksander Ramon MD 08/22/2020 17:03:01
--- NOTE | 2020-08-22 09:31 | CT_ITS ---
PROCEDURE: CT ANGIO CHEST CLINCIAL INDICATION: Dyspnea/chest pain [place] COMPARISON: No exams were available for comparison TECHNIQUE: IV Contrast: 70ML OPTIRAY 350 Axial images obtained with sagittal and coronal reformats. All CT scans at the facility use one or more dose reduction, viz: automated exposure control, ma/kV adjustment per patient size (including targeted exams where dose is matched to indication, i.e. head), or iterative reconstruction technique. FINDINGS: Faint increased density is present in the anterior mediastinum and could represent residual thymic tissue. There is a 1.5 x 1 cm opacity in the AP window on the left which could be due to redundancy of the superior pericardial recess or small lymph node. Mild atelectatic or fibrotic changes are present in the right lung base. This this no lobar consolidation or collapse. Mild atelectatic or fibrotic changes are present in the lingula and left lower lobe. There is a calcified granuloma in the right middle lobe.. There is a very faint mosaic attenuation of the lungs in the upper lobes. This is nonspecific. Upper abdominal images demonstrates a subtle area of decreased attenuation in the right kidney superiorly at 12 mm. This is indeterminate. No acute bony findings. IMPRESSION: 1. Mild mosaic attenuation of the upper lobes. This is nonspecific and may be seen with obstructive small airway disease, occlusive vascular disease or parenchymal disease. 2. Small mediastinal lymph nodes versus superior pericardial recess in the AP window and a small right hilar node with possible residual thymic tissue in the anterior mediastinum. Consider six-month follow-up to confirm stability 3. Indeterminate right renal nodule which may be further evaluated with ultrasound to determine cystic or solid nature. Dictated by: Aleksander Ramon MD 08/23/2020 09:45 Aleksander Ramon MD in [place] 08/23/2020 09:45
== END ==
PROVIDERS: PCP Nurse Practitioner Family; Visit Provider Internal Medicine Cardiovascular Disease
DX: R07.9 Chest pain, unspecified (principal); R06.00 Dyspnea, unspecified; R09.89 Other specified symptoms and signs involving the circulatory and respiratory systems; R55 Syncope and collapse; R00.2 Palpitations; E78.5 Hyperlipidemia, unspecified; I10 Essential (primary) hypertension; Z72.0 Tobacco use; Z86.73 Personal history of transient ischemic attack (TIA), and cerebral infarction without residual deficits
CPT/HCPCS: 71275; 93880; Q9967

== ENCOUNTER → 2021-11-27 15:49 | Outpatient (CLI) | payer MEDICAID, SELFPAY | PROVIDERS: Visit Provider Nurse Practitioner | DX: U07.1 COVID-19 (principal) | CPT/HCPCS: C9803; U0003; U0005 ==

== ENCOUNTER → 2023-07-27 11:23 | Outpatient (CLI) | payer MEDICAID, SELFPAY ==
[2023-07-27 19:09] LABS: Basophils # 0.1 K/mm3 (0-0.2); Basophils % 0.6 % (0.1-2.0); Eosinophils # 0.1 K/mm3 (0.0-0.4); Eosinophils % 1.6 % (0.1-12.0); Hematocrit 46.9 % (42.0-52.0); Hemoglobin 14.7 g/dL (14.1-18.0); Lymphocytes # 3.6 K/mm3 (0.7-4.5); Lymphocytes % 40.6 % (10-50); Mean Corpuscular HGB Conc 31.4 g/dL (31.8-35.4); Mean Corpuscular Hemoglobin 31.6 pg (27.0-31.2); Mean Corpuscular Volume 100.6 fl (80-94); Mean Platelet Volume 8.4 fl (7.4-10.4); Monocytes # 0.6 K/mm3 (0.1-1.0); Monocytes % 6.9 % (1.7-9.3); Neutrophils # 4.5 K/mm3 (1.8-7.8); Neutrophils % 50.4 % (37.0-80.0); Platelet Count 421 K/mm3 (142-424); Red Blood Count 4.66 M/mm3 (4.60-6.20); Red Cell Distribution Width 13.8 % (11.5-17.5)
[2023-07-27 19:19] LABS: Alanine Aminotransferase 91 U/L (12-78); Albumin Level 4.5 g/dl (3.5-5.0); Albumin/Globulin Ratio 1.4 (1.1-1.8); Alkaline Phosphatase 120 U/L (38-126); Anion Gap 13.5 mEq/L (5-15); Aspartate Amino Transferase 80 U/L (17-59); Bilirubin,Total 0.2 mg/dl (0.2-1.3); Blood Urea Nitrogen 14 mg/dl (9-20); Calcium 9.9 mg/dl (8.4-10.2); Carbon Dioxide 32 mmol/L (22.0-30.0); Chloride 100 mmol/L (98-107); Estimated Glomerular Filt Rate 121 ml/min (>60); GFR (African American) 146 ML/MIN (>60); Globulin 3.3 g/dL (1.3-3.2); Glucose 92 mg/dl (74-100); HDL Cholesterol 45 mg/dl (40-60); Potassium 4.5 mmoL/L (3.5-5.1); Sodium 141 mmol/L (136-145); Total Protein,Serum 7.8 g/dl (6.3-8.2); Triglycerides 354 mg/dl (30-150); VLDL Cholesterol 71 mg/dL (0-40)
[2023-07-27 19:25] LABS: Chol/HDL Ratio 7.2 (1-3.5)
[2023-07-27 19:27] LABS: Cholesterol 406 mg/dl (140-200)
[2023-07-27 19:31] LABS: Direct LDL Cholesterol 242.45 mg/dL (100-129)
== END ==
PROVIDERS: PCP Family Medicine; Visit Provider Family Medicine
DX: I10 Essential (primary) hypertension (principal); E78.5 Hyperlipidemia, unspecified; Z72.0 Tobacco use
CPT/HCPCS: 80053; 80061; 85025

== ENCOUNTER → 2023-08-16 07:47 | Outpatient (CLI) | payer MEDICAID, SELFPAY ==
--- NOTE | 2023-08-16 07:51 | CA_ITS ---
FINAL REPORT TECHNIQUE: Color Doppler, duplex Doppler and reis scale sonography of the bilateral neck vasculature was performed. Velocities were measured in the carotid arteries. Stenosis evaluation based on velocity criteria. CLINICAL HISTORY: hypertension, Hx-CVA, Smoker, Left carotid bruit. FINDINGS: The peak systolic velocity of the right common carotid artery is 66 cm/sec and internal carotid artery 135 cm/sec. The diastolic velocity in the internal carotid artery is 58 cm/sec. The ICA/CCA ratio is 2.58. Visually, a mild amount of plaque is seen. These findings are consistent with less than 50% stenosis. The external carotid artery is patent. The right vertebral artery is patent with antegrade flow. The peak systolic velocity of the left common carotid artery is 99 cm/sec and internal carotid artery 154 cm/sec. The diastolic velocity in the internal carotid artery is 71 cm/sec. The ICA/CCA ratio is 2.22. Visually, a mild amount of plaque is seen. These findings are consistent with less than 50% stenosis. The external carotid artery is patent. The left vertebral artery is patent with antegrade flow. IMPRESSION: Less than 50% bilateral carotid stenosis. Bilateral patent vertebral arteries. Reviewed, Interpreted and Dictated by Ezio Gabriel III, MD Transcribed by Kasi Skaggs Authenticated and [facility]
--- NOTE | 2023-08-16 07:51 | CA_ITS ---
FINAL REPORT TECHNIQUE: Grayscale, color Doppler and duplex Doppler ultrasound of the kidneys, aorta and renal arteries was performed. Multiple velocities were measured. CLINICAL HISTORY: hx of CVA, HTN, Smoker FINDINGS: Aorta velocity: 64.5 cm/sec Right kidney: 10.5 cm. No evidence of hydronephrosis or mass. Right intrarenal RI: 0.66 Right renal artery velocity: 149 cm/sec. Right RAR (Renal artery-Aortic Ratio): 2.3 Left Kidney: 10.9 cm. No evidence of hydronephrosis or mass. Left intrarenal RI: 0.68 Left renal artery velocity: 159 cm/sec. Left RAR (Renal Artery-Aortic Ratio): 2.2 IMPRESSION: No evidence of significant renal artery stenosis. CT angiogram or postcontrast MR angiogram would be more sensitive for evaluation of possible renal artery stenosis. Reviewed, Interpreted and Dictated by Ezio Gabriel III, MD Transcribed by Christina Chavez Authenticated and . [facility]
== END ==
PROVIDERS: PCP Family Medicine; Visit Provider Family Medicine
DX: Z86.73 Personal history of transient ischemic attack (TIA), and cerebral infarction without residual deficits (principal); Z72.0 Tobacco use; I10 Essential (primary) hypertension
CPT/HCPCS: 93880; 93976

== ENCOUNTER 2023-12-21 21:23 | Outpatient (CLI) | payer MEDICAID, SELFPAY ==
[2023-12-21 19:37] LABS: Chloride 104 mmol/L (98-107); Potassium 3.9 mmoL/L (3.5-5.1); Sodium 136 mmol/L (136-145)
[2023-12-21 19:40] LABS: Alanine Aminotransferase 62 U/L (12-78); Albumin Level 3.9 g/dl (3.5-5.0); Albumin/Globulin Ratio 1.6 (1.1-1.8); Alkaline Phosphatase 109 U/L (38-126); Anion Gap 3.9 mEq/L (5-15); Aspartate Amino Transferase 54 U/L (17-59); Bilirubin,Total 0.3 mg/dl (0.2-1.3); Blood Urea Nitrogen 12 mg/dl (9-20); Carbon Dioxide 32 mmol/L (22.0-30.0); Estimated Glomerular Filt Rate 121 ml/min (>60); GFR (African American) 146 ML/MIN (>60); Globulin 2.5 g/dL (1.3-3.2); Total Protein,Serum 6.4 g/dl (6.3-8.2)
[2023-12-21 19:41] LABS: Calcium 9.1 mg/dl (8.4-10.2); Glucose 154 mg/dl (74-100)
== END 2023-12-21 23:59 ==
LOC: LAB.DROPOF 21:23
PROVIDERS: PCP Family Medicine; Visit Provider Family Medicine
DX: E78.5 Hyperlipidemia, unspecified (principal)
CPT/HCPCS: 80053

== ENCOUNTER 2024-01-04 10:16 | Outpatient (CLI) | payer MEDICAID, SELFPAY ==
--- NOTE | 2024-01-04 10:21 | XR_ITS ---
FINAL REPORT CLINICAL HISTORY: back pain, radiates to right hip FINDINGS: AP and lateral views of the lumbar spine were obtained. There is no prior exam for comparison. There is no acute fracture. Vertebral body height is preserved. There are postoperative changes from posterior fusion of L4-5. The hardware is intact. There is grade 1 anterior spondylolisthesis of L4 on 5. Mild degenerative disc disease is noted, most pronounced at L5-S1. No acute paraspinal abnormality. IMPRESSION: Degenerative and postsurgical changes as above. Reviewed, Interpreted and Dictated by Beti Shoemaker MD Transcribed by Cheryl Ga Authenticated and [facility]
--- NOTE | 2024-01-04 10:21 | XR_ITS ---
FINAL REPORT CLINICAL HISTORY: hip pain FINDINGS: AP and frog leg views of the right hip were obtained. There is no prior exam for comparison. There is no acute fracture or dislocation. There is mild degenerative joint disease. 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 IMPRESSION: Degenerative changes as above. Reviewed, Interpreted and Dictated by Beti Shoemaker MD Transcribed by Cheryl Ga Authenticated and [facility]
== END 2024-01-04 23:59 ==
LOC: RAD 10:16
PROVIDERS: PCP Family Medicine; Visit Provider Family Medicine
DX: M54.9 Dorsalgia, unspecified (principal); M54.50 Low back pain, unspecified; M25.551 Pain in right hip; G89.29 Other chronic pain
CPT/HCPCS: 72100; 73502